=== PATIENT | female | born 1955 | race Caucasian/White ===

== ENCOUNTER → 2016-11-07 | Outpatient (CLI) | payer MEDICAID ==
[~2016-11-07] MED LIST: ACYC-57 PO; AMOX1TAB12 PO; AZIT250T89 PO; LEVO500T8 PO; MONT10TA9 PO; TIOT18CA INH
== END | disposition home or self-care (01) ==
LOC: CFH 14:54
PROVIDERS: ATTEND Nurse Practitioner
DX: J43.2 Centrilobular emphysema (principal)
CPT/HCPCS: 71250